=== PATIENT | female | born 1995 | race Caucasian/White ===

== ENCOUNTER 2017-08-22 07:50 | Emergency (ER) | payer OTHER, MEDICAID ==
[~2017-08-22] VITALS: Ht 167.6 cm; Wt 49.9 kg
[~2017-08-22 07:50] MED LIST: ADDERALL XR 2020 MG PO; BACTRIM DS TAB1 EACH PO; CELEXA; CIPROFLOXACIN; DEPO-PROVERA IM; FLEXERIL PO; IBUPROFEN 800800 M1 PO; IBUPROFEN 800800 MG PO; K-DUR 20 MEQ T20 MEQ PO; KEFLEX500 MG PO; LAMICTAL; LAMICTAL XR50 MG PO; LEXAPRO 10 MG T10 MG PO; LORTAB 5-500 T1 EAC1 PO; MACROBID 100 M100 M1 PO; MEDROLDOSEPACK PO; MISC; NAPROSYN500 MG PO; NOHOMEMEDICATIONS; NORCO 10-325 T1 EACH PO; NORCO 5-325 TA1 EACH PO; ONDANSETRON HCL4 M2 PO; POTASSIUM20 PO; PRENATAL; PROAIR HFA8.5 GM INH; PROMETHAZINE D480 ML PO; ROBAXIN500 MG PO; SEROQUEL 50 MG50 MG; TESSALON PERLE100 MG PO; TRAMADOL 50 MG50 MG PO; TRINATE TABLET1 TAB PO; ZPAK PO
[2017-08-22] MEDS ORDERED: BLEPH-105 ML OPHTHALMIC (08:49)
[2017-08-22 09:02] VITALS: BP 103/72
== END 2017-08-22 09:03 | disposition home or self-care (01) ==
LOC: M.ERS 07:50
DX: H10.9 Unspecified conjunctivitis (principal); F17.210 Nicotine dependence, cigarettes, uncomplicated; Z88.5 Allergy status to narcotic agent; Z85.89 Personal history of malignant neoplasm of other organs and systems

== ENCOUNTER 2019-12-14 17:26 | Emergency (ER) | payer OTHER ==
[~2019-12-14] VITALS: Ht 167.6 cm; Wt 56.7 kg
[~2019-12-14 17:26] MED LIST changes: +BLEPH-105 ML OPHTHALMIC
[2019-12-14 18:30] LABS: ABSOLUTE BASOPHILS 0.1 thou/uL (0.0-0.2); ABSOLUTE EOSINOPHILS 0.5 thou/uL (0.0-0.7); ABSOLUTE LYMPHOCYTES 3.2 thou/uL (0.8-5.3); ABSOLUTE MONOCYTES 0.9 thou/uL (0.0-1.2); ABSOLUTE NEUTROPHILS 7.2 thou/uL (1.6-8.1); BASOPHILS 0.9 %; HEMATOCRIT 37.9 % (37.0-47.0); HEMOGLOBIN 12.8 gm/dL (12.0-15.0); LYMPHOCYTES 26.8 %; MCH 29.7 pg (26.0-34.0); MCHC 33.8 g/dL (28.0-37.0); MONOCYTES 7.2 %; MPV 7.6 fl. (7.2-11.1); NUCLEATED RBCS 0 /100WBC; PLATELET COUNT* 346 thou/uL (150-400); POLYS 61.1 %; RDW-CV 14.1 % (10.5-14.5); WBC 11.8 thou/uL (4.0-11.0)
[2019-12-14 18:31] LABS: URINE BILIRUBIN NEGATIVE (Negative); URINE BLOOD TRACE (Negative); URINE CLARITY CLEAR; URINE COLOR YELLOW; URINE GLUCOSE-RANDOM NEGATIVE (Negative); URINE KETONES NEGATIVE (Negative); URINE LEUKOCYTES-REFLEX TRACE (Negative); URINE NITRITE-REFLEX NEGATIVE (Negative); URINE PROTEIN NEGATIVE (Negative); URINE UROBILINOGEN 0.2 E.U./dl (0.2-1.0)
[2019-12-14 18:40] LABS: CALCIUM 8.4 mg/dL (8.5-10.1); CREATININE 0.6 mg/dL (0.6-1.3); POTASSIUM 3.2 mmol/L (3.5-5.1)
[2019-12-14 18:42] LABS: MUCUS None Seen strn/LPF (None Seen); SQUAMOUS 4-10 Moderate /LPF (0-3); URINE WBC-REFLEX 0-5 Rare /HPF (0-5)
[2019-12-14 18:43] LABS: CASTS None Seen /LPF (None Seen); CRYSTALS None Seen /LPF (None Seen); URINE RBC 0-2 Rare /HPF (0-2)
[2019-12-14 18:52] LABS: ALBUMIN 3.8 g/dL (3.4-5.0); TOTAL BILIRUBIN 0.1 mg/dL (<0.1-1.0); TOTAL PROTEIN 6.9 g/dL (6.4-8.2)
[2019-12-14] MEDS ORDERED: PYRIDIUM200 MG PO ×2 (19:26→19:30)
[2019-12-14] MEDS ORDERED: KEFLEX500 M2 PO ×2 (19:26→19:30)
[2019-12-14 20:10] VITALS: BP 96/62
== END 2019-12-14 20:11 | disposition home or self-care (01) ==
LOC: M.ERS 17:26
PROVIDERS: Nurse Practitioner Psychiatric/Mental Health
DX: N39.0 Urinary tract infection, site not specified (principal); F17.210 Nicotine dependence, cigarettes, uncomplicated; Z88.5 Allergy status to narcotic agent; Z85.41 Personal history of malignant neoplasm of cervix uteri

== ENCOUNTER 2020-06-20 13:18 | Emergency (ER) | payer MEDICAID ==
[~2020-06-20] VITALS: Ht 167.6 cm; Wt 58.1 kg
[~2020-06-20 13:18] MED LIST changes: +KEFLEX500 M2 PO; +PYRIDIUM200 MG PO
[2020-06-20 13:45] LABS: URINE BILIRUBIN NEGATIVE (Negative); URINE BLOOD 1+ (Negative); URINE CLARITY CLEAR; URINE COLOR YELLOW; URINE GLUCOSE-RANDOM NEGATIVE (Negative); URINE KETONES NEGATIVE (Negative); URINE LEUKOCYTES NEGATIVE (Negative); URINE NITRITE NEGATIVE (Negative); URINE PROTEIN NEGATIVE (Negative); URINE SPECIFIC GRAVITY 1.025 (1.005-1.030); URINE UROBILINOGEN 0.2 E.U./dl (0.2-1.0)
[2020-06-20 13:54] LABS: ABSOLUTE BASOPHILS 0.1 thou/uL (0.0-0.2); ABSOLUTE EOSINOPHILS 0.3 thou/uL (0.0-0.7); ABSOLUTE LYMPHOCYTES 3.1 thou/uL (0.8-5.3); ABSOLUTE MONOCYTES 0.9 thou/uL (0.0-1.2); ABSOLUTE NEUTROPHILS 8.5 thou/uL (1.6-8.1); BASOPHILS 0.9 %; EOSINOPHILS 2.7 %; HEMATOCRIT 39.3 % (37.0-47.0); LYMPHOCYTES 23.9 %; MCH 30.2 pg (26.0-34.0); MCHC 33.2 g/dL (28.0-37.0); MCV 90.9 fL (80.0-100.0); MONOCYTES 6.6 %; MPV 9.4 fl. (7.2-11.1); NUCLEATED RBCS 0 /100WBC; POLYS 65.9 %; RBC 4.32 mil/uL (4.20-5.00); RDW-CV 12.8 % (10.5-14.5); WBC 12.8 thou/uL (4.0-11.0)
[2020-06-20 13:58] LABS: CREATININE 0.6 mg/dL (0.6-1.3); POTASSIUM 4.2 mmol/L (3.5-5.1)
[2020-06-20 13:58] LABS: SQUAMOUS 4-10 Moderate /LPF (0-3)
[2020-06-20 13:59] LABS: BACTERIA 1-9 Few /HPF (None Seen); CASTS None Seen /LPF (None Seen); CRYSTALS None Seen /LPF (None Seen); MUCUS >6 Heavy strn/LPF (None Seen); URINE RBC 0-2 Rare /HPF (0-2); URINE WBC None Seen /HPF (0-5)
[2020-06-20 14:03] LABS: ALBUMIN 3.5 g/dL (3.4-5.0); TOTAL BILIRUBIN 0.6 mg/dL (<0.1-1.0); TOTAL PROTEIN 7.6 g/dL (6.4-8.2)
[2020-06-20 14:29] LABS: PLATELET ESTIMATE ADEQUATE
[2020-06-20 14:34] LABS: CLUMPED PLTS MODERATE
[2020-06-20 14:35] LABS: PLATELET COUNT* 222 thou/uL (150-400)
[2020-06-20] MEDS ORDERED: NORCO5 PO (15:00)
[2020-06-20 15:14] VITALS: BP 123/60
== END 2020-06-20 15:14 | disposition home or self-care (01) ==
LOC: M.ERS 13:18
PROVIDERS: Emergency Medicine
DX: N83.202 Unspecified ovarian cyst, left side (principal); R11.10 Vomiting, unspecified; F17.210 Nicotine dependence, cigarettes, uncomplicated; Z87.42 Personal history of other diseases of the female genital tract; Z85.41 Personal history of malignant neoplasm of cervix uteri; Z88.5 Allergy status to narcotic agent